=== PATIENT | male | born 1960 | race Caucasian/White ===

== ENCOUNTER 2016-07-28 10:11 | Inpatient (IN) | payer OTHER ==
[~2016-07-28] VITALS: Ht 175.3 cm; Wt 83.5 kg
[2016-07-28] MEDS ORDERED: AMLO-512 PO (10:17)
[2016-07-28] MEDS ORDERED: ESCI20TA PO (10:17)
[2016-07-28 10:52] LABS: BASOPHILS % (AUTO) 0.5 % (0.0-2.0); EOSINOPHILS % (AUTO) 0.3 % (1.0-6.0); HEMOGLOBIN 18.3 g/dL (13.5-17.5); LYMPHOCYTES # (AUTO) 3.4 K/uL (1.0-4.8); LYMPHOCYTES % (AUTO) 34.5 % (22.0-44.0); MEAN CORPUSCULAR HEMOGLOBIN 32.1 pg (26.0-34.0); MEAN CORPUSCULAR VOLUME 97 fL (80-100); MONOCYTES # (AUTO) 0.3 K/uL (0.1-1.0); MONOCYTES % (AUTO) 2.9 % (2.0-9.0); NEUTROPHILS # (AUTO) 6.1 K/uL (1.8-7.7); NEUTROPHILS % (AUTO) 61.8 % (40.0-70.0); PLATELET COUNT (AUTO) 314 K/uL (150-450); RED CELL DISTRIBUTION WIDTH 14.8 % (11.5-14.5); WHITE BLOOD COUNT (AUTO) 9.9 K/uL (4.5-11.0)
[2016-07-28 10:53] LABS: HEMATOCRIT 55.5 % (41-53)
[2016-07-28 10:57] LABS: ANION GAP 15 mmol/L (8-16); CALCIUM, TOTAL 8.7 mg/dL (8.8-10.5); CARBON DIOXIDE 25 mmol/L (22-29); CHLORIDE 101 mmol/L (98-107); CREATININE 1.08 mg/dL (0.60-1.30); GLOMERULAR FILTR. RATE CALC > 60 mL/min (>60); POTASSIUM 3.8 mmol/L (3.5-5.1); SODIUM SERUM 141 mmol/L (136-145); UREA NITROGEN, BLOOD 14 mg/dL (7-18)
[2016-07-28 11:03] LABS: ALANINE AMINOTRANSFERASE 101 U/L (12-78); ALBUMIN 4.9 g/dL (3.4-5.0); ASPARTATE AMINOTRANSFERASE 61 U/L (15-37); BILIRUBIN,TOTAL 0.9 mg/dL (0.1-1.0); TOTAL PROTEIN, SERUM 9.1 g/dL (6.4-8.2)
[2016-07-28] MEDS ORDERED: LORazepam 2 MG TABLET PO ONE (11:30)
[2016-07-28] MEDS ORDERED: HALOPERIDOL 5 MG TABLET PO PRN (13:15)
[2016-07-28 18:00] VITALS: BP 144/74
[2016-07-28] MEDS ORDERED: ONDANSETRON HCL 4 MG/2 ML VIAL IM ONE (18:15)
[2016-07-28] MEDS: AmLODIPine BESYLATE 10 MG TABLET PO SCH (18:26)
[2016-07-28 19:00] VITALS: BP 159/90
[2016-07-28] MEDS ORDERED: PNEUMOCOCCAL VACCINE POLYVALENT 0.5 ML VIAL [PPSV23] IM ONE (19:15)
[2016-07-28] MEDS: LORazepam 2 MG TABLET PO PRN (19:50)
[2016-07-28 20:00] VITALS: BP 135/84
[2016-07-28 21:00] VITALS: BP 142/91
[2016-07-28] MEDS: ZOLPIDEM TARTRATE 10 MG TABLET PO PRN (21:44)
[2016-07-29] VITALS (7 sets, daily range): BP systolic 137–156; BP diastolic 82–100
[2016-07-29] MEDS: LORazepam 2 MG TABLET PO PRN (05:17)
[2016-07-29] MEDS ORDERED: LORazepam 2 MG TABLET PO PRN (07:00)
[2016-07-29] MEDS: LORazepam 2 MG TABLET PO SCH ×4 (08:35→20:29)
[2016-07-29] MEDS: AmLODIPine BESYLATE 10 MG TABLET PO SCH (08:36)
[2016-07-29] MEDS: ESCITALOPRAM OXALATE 20 MG TABLET PO SCH (09:27)
[2016-07-29] MEDS: ONDANSETRON HCL 4 MG TABLET PO PRN (11:12)
[2016-07-29] MEDS ORDERED: CloNIDine HCL 0.1 MG TABLET PO PRN (15:30)
[2016-07-30] VITALS (8 sets, daily range): BP systolic 135–163; BP diastolic 85–112
[2016-07-30] MEDS: ONDANSETRON HCL 4 MG TABLET PO PRN ×2 (00:24→04:35)
[2016-07-30] MEDS: LORazepam 2 MG TABLET PO PRN (02:00)
[2016-07-30 07:06] LABS: BASOPHILS % (AUTO) 0.2 % (0.0-2.0); EOSINOPHILS % (AUTO) 0 % (1.0-6.0); HEMATOCRIT 50.6 % (41-53); HEMOGLOBIN 16.7 g/dL (13.5-17.5); LYMPHOCYTES # (AUTO) 1.1 K/uL (1.0-4.8); MEAN CORPUSCULAR HEMOGLOBIN 32.2 pg (26.0-34.0); MEAN CORPUSCULAR HGB CONC 33.1 G/dL (31.0-37.0); MEAN CORPUSCULAR VOLUME 97 fL (80-100); MONOCYTES # (AUTO) 0.7 K/uL (0.1-1.0); MONOCYTES % (AUTO) 5.4 % (2.0-9.0); NEUTROPHILS # (AUTO) 10.5 K/uL (1.8-7.7); PLATELET COUNT (AUTO) 230 K/uL (150-450); RED BLOOD CELL COUNT(AUTO) 5.19 MIL/uL (4.50-5.90); RED CELL DISTRIBUTION WIDTH 14.8 % (11.5-14.5); WHITE BLOOD COUNT (AUTO) 12.3 K/uL (4.5-11.0)
[2016-07-30 07:27] LABS: NEUTROPHILS % (AUTO) 85.4 % (40.0-70.0)
[2016-07-30 07:40] LABS: ALANINE AMINOTRANSFERASE 88 U/L (12-78); ALBUMIN 4.6 g/dL (3.4-5.0); ANION GAP 12 mmol/L (8-16); ASPARTATE AMINOTRANSFERASE 81 U/L (15-37); BILIRUBIN,TOTAL 1.7 mg/dL (0.1-1.0); CALCIUM, TOTAL 9.7 mg/dL (8.8-10.5); CARBON DIOXIDE 29 mmol/L (22-29); CHLORIDE 96 mmol/L (98-107); CHOL/HDL RATIO 4.6 (4.2-7.3); GLOMERULAR FILTR. RATE CALC > 60 mL/min (>60); POTASSIUM 3.2 mmol/L (3.5-5.1); SODIUM SERUM 137 mmol/L (136-145); THYROID STIMULATING HORMONE 2.39 uIU/mL (0.36-3.74); TOTAL PROTEIN, SERUM 8.3 g/dL (6.4-8.2); UREA NITROGEN, BLOOD 13 mg/dL (7-18)
[2016-07-30 07:45] LABS: HEMOGLOBIN A1C 5.5 % (4.5-6.2)
[2016-07-30] MEDS ORDERED: PROMETHAZINE HCL 25 MG/ML VIAL IM PRN (09:00)
[2016-07-30] MEDS: LORazepam 2 MG TABLET PO SCH ×4 (09:00→20:18)
[2016-07-30] MEDS ORDERED: AmLODIPine BESYLATE 10 MG TABLET PO SCH (09:00)
[2016-07-30] MEDS ORDERED: ONDANSETRON HCL 4 MG/2 ML VIAL IM ONE (11:30)
[2016-07-30] MEDS: AmLODIPine BESYLATE 10 MG TABLET PO SCH (12:07)
[2016-07-30] MEDS: ESCITALOPRAM OXALATE 20 MG TABLET PO SCH (12:07)
[2016-07-30] MEDS: PANTOPRAZOLE SODIUM 40 MG DR TABLET PO SCH ×2 (12:08→16:26)
[2016-07-30] MEDS ORDERED: ONDANSETRON HCL 4 MG/2 ML VIAL IM PRN (13:30)
[2016-07-30] MEDS ORDERED: POTASSIUM CHLORIDE 20 MEQ ER TABLET PO ONE (23:15)
[2016-07-31] MEDS: ZOLPIDEM TARTRATE 10 MG TABLET PO PRN (00:09)
[2016-07-31 00:53] VITALS: BP 126/106
[2016-07-31 00:54] VITALS: BP 126/106
[2016-07-31] MEDS ORDERED: LORazepam 1 MG TABLET PO PRN (07:00)
[2016-07-31 07:13] LABS: BASOPHILS % (AUTO) 0.2 % (0.0-2.0); EOSINOPHILS % (AUTO) 0.6 % (1.0-6.0); HEMATOCRIT 49.7 % (41-53); HEMOGLOBIN 16.5 g/dL (13.5-17.5); LYMPHOCYTES # (AUTO) 2.1 K/uL (1.0-4.8); LYMPHOCYTES % (AUTO) 19.2 % (22.0-44.0); MEAN CORPUSCULAR HEMOGLOBIN 32.4 pg (26.0-34.0); MEAN CORPUSCULAR HGB CONC 33.2 G/dL (31.0-37.0); MEAN CORPUSCULAR VOLUME 98 fL (80-100); MONOCYTES # (AUTO) 0.8 K/uL (0.1-1.0); MONOCYTES % (AUTO) 7.2 % (2.0-9.0); NEUTROPHILS # (AUTO) 8.1 K/uL (1.8-7.7); NEUTROPHILS % (AUTO) 72.8 % (40.0-70.0); PLATELET COUNT (AUTO) 222 K/uL (150-450); RED BLOOD CELL COUNT(AUTO) 5.09 MIL/uL (4.50-5.90); RED CELL DISTRIBUTION WIDTH 14.7 % (11.5-14.5); WHITE BLOOD COUNT (AUTO) 11.2 K/uL (4.5-11.0)
[2016-07-31 07:29] LABS: ALBUMIN 4.3 g/dL (3.4-5.0); BILIRUBIN,TOTAL 1.7 mg/dL (0.1-1.0); CALCIUM, TOTAL 9.5 mg/dL (8.8-10.5); CREATININE 1.24 mg/dL (0.60-1.30); POTASSIUM 3.4 mmol/L (3.5-5.1)
[2016-07-31] MEDS: LORazepam 1 MG TABLET PO SCH ×4 (08:01→20:06)
[2016-07-31] MEDS: AmLODIPine BESYLATE 10 MG TABLET PO SCH (08:01)
[2016-07-31] MEDS: ESCITALOPRAM OXALATE 20 MG TABLET PO SCH (08:01)
[2016-07-31] MEDS: PANTOPRAZOLE SODIUM 40 MG DR TABLET PO SCH ×2 (08:01→16:11)
[2016-07-31 08:19] VITALS: BP 141/96
[2016-07-31 11:24] LABS: HEPATITIS Bs ANTIGEN SCREEN P Negative (Negative); HEPATITIS C AB SCREEN <0.1 s/co ratio (0.0-0.9)
[2016-07-31] MEDS ORDERED: POTASSIUM CHLORIDE 20 MEQ ER TABLET PO ONE (14:30)
[2016-07-31 17:12] VITALS: BP 149/86
[2016-07-31 17:21] VITALS: BP 149/86
[2016-08-01 06:27] VITALS: BP 140/84
[2016-08-01 06:28] VITALS: BP 140/84
[2016-08-01] MEDS ORDERED: LORazepam 1 MG TABLET PO PRN (07:00)
[2016-08-01] MEDS: ESCITALOPRAM OXALATE 20 MG TABLET PO SCH (08:10)
[2016-08-01] MEDS: PANTOPRAZOLE SODIUM 40 MG DR TABLET PO SCH (08:10)
[2016-08-01] MEDS: AmLODIPine BESYLATE 10 MG TABLET PO SCH (08:10)
[2016-08-01] MEDS: LORazepam 2 MG TABLET PO PRN (08:11)
[2016-08-01] MEDS ORDERED: ACETAMINOPHEN 325 MG TABLET PO PRN (08:30)
[2016-08-01] MEDS ORDERED: IBUPROFEN 600 MG TABLET PO PRN (08:30)
[2016-08-01 08:38] VITALS: BP 127/100
[2016-08-01] MEDS ORDERED: PANT40TA25 PO (10:25)
== END 2016-08-01 15:10 | disposition home or self-care (01) | DRG 885 ==
LOC: EEVIPCON 10:11 → EMS 10:14 → 3EX 16:42
DX: F33.2 Major depressive disorder, recurrent severe without psychotic features (principal); R45.851 Suicidal ideations; G47.00 Insomnia, unspecified; I10 Essential (primary) hypertension; F10.10 Alcohol abuse, uncomplicated; F19.90 Other psychoactive substance use, unspecified, uncomplicated; D75.1 Secondary polycythemia; K70.10 Alcoholic hepatitis without ascites; Z28.21 Immunization not carried out because of patient refusal; Z79.899 Other long term (current) drug therapy; Z90.49 Acquired absence of other specified parts of digestive tract; Z71.41 Alcohol abuse counseling and surveillance of alcoholic; Z82.49 Family history of ischemic heart disease and other diseases of the circulatory system; Z82.5 Family history of asthma and other chronic lower respiratory diseases
CPT/HCPCS: 80074; 82306; 82607; 82746; 83036; 83735; 84439; 84443; 99285; G0480; J2405; J2550; Q0162